=== PATIENT | male | born 1940 | race African-American/Black ===

== ENCOUNTER 2023-06-14 10:02 | Emergency (ER) | payer MEDICARE, OTHER ==
[~2023-06-14] VITALS: Ht 190.5 cm; Wt 117.0 kg
[~2023-06-14 10:02] MED LIST: LOSA-20; METF500T
[2023-06-14 10:11] VITALS: O2SAT 99
[2023-06-14] MEDS ORDERED: ACETAMINOPHEN 325MG TABLET PO STA (14:18)
[2023-06-14] MEDS ORDERED: METHYLPREDNISOLONE SOD SUCC 125MG/2ML (ACT-O-VIAL) IM STA (14:18)
[2023-06-14] MEDS ORDERED: NAPR-681 PO (14:59)
[2023-06-14] MEDS ORDERED: METHYLPREDNISOLONE SOD SUCC 125MG VIAL IM NR (15:15)
[2023-06-14 16:21] VITALS: BP 111/70; PULSE 70; RESP 18; TEMP 98.8
== END 2023-06-14 16:22 | disposition home or self-care (01) ==
LOC: ER 10:58
DX: M25.511 Pain in right shoulder (principal); E11.9 Type 2 diabetes mellitus without complications; I10 Essential (primary) hypertension
CPT/HCPCS: 99283; 73030; 96372; J2930

== ENCOUNTER 2024-12-21 11:07 | Emergency (ER) | payer OTHER ==
[~2024-12-21] VITALS: Ht 190.5 cm; Wt 114.0 kg
[~2024-12-21 11:07] MED LIST changes: +NAPR-681 PO
[2024-12-21 11:11] VITALS: O2SAT 98
[2024-12-21 11:27] VITALS: BP 154/70; PULSE 95; RESP 16; O2SAT 100
[2024-12-21 14:32] VITALS: TEMP 98.3
[2024-12-21] MEDS: ACETAMINOPHEN 325MG TABLET PO ONE (14:32)
[2024-12-21] MEDS ORDERED: ACET-2708 MT (15:35)
[2024-12-21] MEDS: METHYLPREDNISOLONE SOD SUCC 125MG/2ML (ACT-O-VIAL) IM ONE (15:57)
== END 2024-12-21 16:00 | disposition home or self-care (01) ==
LOC: ER 11:07
DX: M16.12 Unilateral primary osteoarthritis, left hip (principal); E11.9 Type 2 diabetes mellitus without complications; I10 Essential (primary) hypertension; I48.91 Unspecified atrial fibrillation; Z98.890 Other specified postprocedural states; Z79.899 Other long term (current) drug therapy
CPT/HCPCS: 99283; 73502; 96372; J2919